=== PATIENT | female | born 1990 | race Caucasian/White ===

== ENCOUNTER 2018-10-21 21:29 | Emergency (ER) | payer MEDICAID ==
[~2018-10-21] VITALS: Ht 157.5 cm; Wt 63.5 kg
[~2018-10-21 21:29] MED LIST: ABAC300; ALBU90OI6 INH; BC PILLS; BUPR75 PO; Bactrim Ds Tab1 EACH PO; Cyclobenzaprine5 MG PO; Esgic Tablet1 EACH PO; Flonase 0.05% N16 GM; IBUP600 PO; IBUP800; Mobic15 MG PO; Naprosyn375 MG PO; Pepcid20 MG PO; Percocet 5-3251 EACH PO; Pseudoephedrine30 MG PO; SULTRIDS PO; Tylenol325 MG PO; Verotin-Gr Cap1 EACH PO; Vibramycin100 MG PO; Zofran Odt4 MG PO; Zofran Odt4 MG SL; Zofran8 MG PO
[2018-10-21] MEDS ORDERED: Sudogest60 MG PO (21:54)
[2018-10-21] MEDS ORDERED: Amoxicillin875 MG PO (21:54)
== END 2018-10-21 22:19 | disposition home or self-care (01) ==
LOC: ER 21:29
DX: H66.92 Otitis media, unspecified, left ear (principal); Z88.5 Allergy status to narcotic agent; F17.200 Nicotine dependence, unspecified, uncomplicated
CPT/HCPCS: 99282

== ENCOUNTER 2019-06-22 05:38 | Emergency (ER) | payer OTHER ==
[~2019-06-22] VITALS: Ht 157.5 cm; Wt 63.5 kg
[~2019-06-22 05:38] MED LIST changes: +ALBU90OI61 INH; +Amoxicillin875 MG PO; +BENZ100A PO; +Sudogest30 MG PO; +Sudogest60 MG PO
[2019-06-22 06:15] LABS: Source, Urine Clean Catch
[2019-06-22 06:18] LABS: Bilirubin, Urine Neg (Neg); Blood, Urine Neg (Neg); Glucose Qualitative, Urine Neg (Neg); Ketones, Urine Neg (Neg); Leukocyte Esterase, Urine 2+ (Neg); Nitrite, Urine Neg (Neg); Protein, Urine Neg (Neg); Urobilinogen, Urine NORM (Normal)
[2019-06-22 06:27] LABS: Appearance, Urine Clear (Clear); Color, Urine Pale Yellow (P-Yellow)
[2019-06-22 06:29] LABS: Bacteria Few /hpf; Red Blood Cells, Urine 0-2 /hpf (0-2); Squamous Epithelial Cells Mod /hpf (Few)
[2019-06-22 07:53] LABS: BASOPHILS ABSOLUTE AUTO 0.02 K/mm3 (0.00-0.23); BASOPHILS PERCENT AUTO 0 % (0-2); EOSINOPHILS PERCENT AUTO 2 % (0-6); Hematocrit 35.2 % (33.0-51.0); Hemoglobin 11.8 g/dL (11.5-16.0); IMMATURE GRAN ABSOLUTE AUTO 0.01 K/mm3 (0.00-0.10); IMMATURE GRAN PERCENT AUTO 0 % (0-1); LYMPHOCYTES PERCENT AUTO 34 % (21-46); MONOCYTES ABSOLUTE AUTO 0.49 K/mm3 (0.16-1.47); MONOCYTES PERCENT AUTO 9 % (4-13); Mean Corpuscular HGB 29.6 pg (26.0-34.0); Mean Corpuscular HGB Conc 33.5 g/dL (31.5-36.5); Mean Corpuscular Volume 88 fL (80-100); Mean Platelet Volume 9.9 fL (9.1-12.4); NEUTROPHILS ABSOLUTE AUTO 3.16 K/mm3 (1.96-9.15); NEUTROPHILS PERCENT AUTO 56 % (41-73); Platelet Count 202 K/mm3 (150-400); RDW Coefficient Variation 12.2 % (11.7-14.2); RDW Standard Deviation 39.6 fL (35.1-46.3); Red Blood Cell Count 3.99 M/mm3 (3.80-5.20); White Blood Cell Count 5.68 K/mm3 (4.00-11.30)
[2019-06-22 08:20] LABS: Alanine Aminotransfer (ALT/SGP 22 U/L (12-78); Albumin, Blood 3.7 g/dL (3.4-5.0); Albumin/Globulin Ratio 1.3 (0.8-1.8); Alk Phos 78 U/L (50-136); Anion Gap 6 mmol/L (6-16); Aspartate Aminotrans (AST/SGOT 14 U/L (12-37); Bilirubin, Total 0.4 mg/dL (0.1-1.0); Blood Urea Nitrogen 14 mg/dL (8-24); Bun/Creatinine Ratio 25.4 (12.0-20.0); CO2, Blood 26 mmol/L (21-32); Calcium, Blood 8.6 mg/dL (8.5-10.1); Chloride, Blood 111 mmol/L (98-108); Creatinine, Blood 0.55 mg/dL (0.40-1.00); Globulin, Blood 2.9 g/dL (2.2-4.0); Glomerular Filtration Rate >60 (60-); Glucose, Blood 93 mg/dL (70-99); Sodium, Blood 143 mmol/L (136-145); Total Protein, Blood 6.6 g/dL (6.4-8.2)
[2019-06-22] MEDS ORDERED: Zofran4 MG PO (09:04)
== END 2019-06-22 09:44 | disposition home or self-care (01) ==
LOC: ER 05:38
PROVIDERS: Emergency Medicine
DX: R11.2 Nausea with vomiting, unspecified (principal); R19.7 Diarrhea, unspecified; Z88.5 Allergy status to narcotic agent; J45.909 Unspecified asthma, uncomplicated
CPT/HCPCS: 36415; 80053; 81001; 81025; 83690; 85025; 87086; 96360; 99283-25; J2405; J7030

== ENCOUNTER 2019-08-20 07:37 | Emergency (ER) | payer OTHER ==
[~2019-08-20] VITALS: Ht 157.5 cm; Wt 65.8 kg
[~2019-08-20 07:37] MED LIST changes: +Zofran4 MG PO
[2019-08-20 08:54] LABS: Influenza A Negative (NEGATIVE); Influenza B Negative (NEGATIVE)
[2019-08-20] MEDS ORDERED: METPRE4DP PO (09:49)
[2019-08-20] MEDS ORDERED: Ventolin/Prove6.7 GM INH (09:49)
== END 2019-08-20 09:57 | disposition home or self-care (01) ==
LOC: ER 07:37
PROVIDERS: Emergency Medicine
DX: J98.01 Acute bronchospasm (principal); J06.9 Acute upper respiratory infection, unspecified; Z88.5 Allergy status to narcotic agent; Z79.899 Other long term (current) drug therapy
CPT/HCPCS: 71046; 81025; 87804; 94640; 99283-25

== ENCOUNTER → 2020-07-12 | Outpatient (CLI) | payer OTHER ==
[~2020-07-12] MED LIST changes: +METPRE4DP PO; +Ventolin/Prove6.7 GM INH
[2020-07-13 11:28] LABS: Candida species (DNA Probe) Negative (NEGATIVE); G. vaginalis (DNA Probe) Negative (NEGATIVE); T. vaginalis (DNA Probe) Negative (NEGATIVE)
[2020-07-13 15:11] LABS: HPV 16 Negative (Negative); HPV 18 Negative (Negative); HPV OTHER HR TYPES Negative (Negative)
== END | disposition home or self-care (01) ==
LOC: LAB SHORT 17:58 → LAB 17:58
PROVIDERS: Nurse Practitioner Family
DX: N76.0 Acute vaginitis (principal)
CPT/HCPCS: 87070; 87205; 87480; 87510; 87624; 87660; G0123

== ENCOUNTER 2021-01-12 07:05 | Emergency (ER) | payer OTHER ==
[~2021-01-12] VITALS: Ht 157.5 cm; Wt 68.0 kg
[2021-01-12] MEDS ORDERED: SUMA25 PO (07:18)
[2021-01-12] MEDS ORDERED: ZEBUTAL 50-3251 EAC2 PO (09:38)
== END 2021-01-12 09:51 | disposition home or self-care (01) ==
LOC: ER 07:05
DX: R51.9 Headache, unspecified (principal); F41.9 Anxiety disorder, unspecified; J45.909 Unspecified asthma, uncomplicated; Z88.6 Allergy status to analgesic agent; Z88.5 Allergy status to narcotic agent; Z79.899 Other long term (current) drug therapy
CPT/HCPCS: 36415; 70450; 96374; 96375; 99284-25; J1100; J1200; J1885; J2060; J2765; J7030

== ENCOUNTER 2021-06-09 23:54 | Emergency (ER) | payer OTHER ==
[~2021-06-09] VITALS: Ht 157.5 cm; Wt 70.8 kg
[~2021-06-09 23:54] MED LIST changes: +SUMA25 PO; +ZEBUTAL 50-3251 EAC2 PO
[2021-06-10] MEDS ORDERED: Amoxicillin875 MG PO (00:35)
== END 2021-06-10 00:32 | disposition home or self-care (01) ==
LOC: ER 23:54
DX: H66.92 Otitis media, unspecified, left ear (principal); J30.9 Allergic rhinitis, unspecified; G43.909 Migraine, unspecified, not intractable, without status migrainosus; J45.909 Unspecified asthma, uncomplicated; Z88.5 Allergy status to narcotic agent
CPT/HCPCS: 99282

== ENCOUNTER → 2022-04-04 | Outpatient (CLI) | payer OTHER ==
[2022-04-05 10:27] LABS: Candida species (DNA Probe) Negative (NEGATIVE); G. vaginalis (DNA Probe) Positive (NEGATIVE); T. vaginalis (DNA Probe) Negative (NEGATIVE)
== END | disposition home or self-care (01) ==
LOC: LAB 13:03 → LAB SHORT 13:03
PROVIDERS: Family Medicine
DX: R30.9 Painful micturition, unspecified (principal)
CPT/HCPCS: 87086; 87480; 87510; 87660

== ENCOUNTER 2022-11-22 07:29 | Day surgery (SDC) | payer OTHER ==
[~2022-11-22] VITALS: Ht 157.5 cm; Wt 66.2 kg
[2022-11-22] MEDS ORDERED: AMITRIPTYLINE H25 MG PO (08:05)
[2022-11-22] MEDS ORDERED: LAMO25 PO (08:06)
[2022-11-22] MEDS ORDERED: LATUDA20 M1 PO (08:09)
--- NOTE | 2022-11-22 09:41 | NUR ---
11/22/22 0941 Courtney Khoury ORSC.LETITIA UPPER PREP ORSC.KNM LOWER PREP
--- NOTE | 2022-11-22 11:07 | NUR ---
11/22/22 1107 Radha Neves PATIENT UP IN RECLINER DRINKING PEPSI AND EATING CRACKERS. NO NAUSEA. FENTANYL 25MCG IV ADMINISTERED FOR 6/10 ABD PAIN PER MD ORDERS.
== END 2022-11-22 11:30 | disposition home or self-care (01) ==
LOC: ORSCSDS 07:29
PROVIDERS: Obstetrics & Gynecology
PROC: 0U5B8ZZ Destruction of Endometrium, Via Natural or Artificial Opening Endoscopic (ICD-10-PCS; principal; 2022-11-22 08:45)
PROC: 0UT74ZZ Resection of Bilateral Fallopian Tubes, Percutaneous Endoscopic Approach (ICD-10-PCS; principal; 2022-11-22 08:45)
DX: Z30.2 Encounter for sterilization (principal); N92.1 Excessive and frequent menstruation with irregular cycle; N94.6 Dysmenorrhea, unspecified; N83.8 Other noninflammatory disorders of ovary, fallopian tube and broad ligament; J45.909 Unspecified asthma, uncomplicated; F32.A Depression, unspecified; Z79.899 Other long term (current) drug therapy
CPT/HCPCS: 88302; 88305; A9270; J0171; J0690; J1100; J2250; J2405; J2704; J2795; J3010; J7120

== ENCOUNTER 2025-04-04 18:33 | Observation (INO) | payer OTHER ==
[~2025-04-04] VITALS: Ht 157.5 cm; Wt 63.5 kg
[~2025-04-04 18:33] MED LIST changes: +AMITRIPTYLINE H25 MG PO; +LAMO25 PO; +LATUDA20 M1 PO
[2025-04-04 19:47] LABS: Source, Urine Clean Catch
[2025-04-04 19:53] LABS: BASOPHILS ABSOLUTE AUTO 0.06 K/mm3 (0.00-0.23); BASOPHILS PERCENT AUTO 1 % (0-2); EOSINOPHILS ABSOLUTE AUTO 0.07 K/mm3 (0.00-0.68); EOSINOPHILS PERCENT AUTO 1 % (0-6); Hematocrit 35.4 % (33.0-51.0); Hemoglobin 12.4 g/dL (11.5-16.0); IMMATURE GRAN ABSOLUTE AUTO 0.06 K/mm3 (0.00-0.10); IMMATURE GRAN PERCENT AUTO 1 % (0-1); LYMPHOCYTES ABSOLUTE AUTO 1.69 K/mm3 (0.84-5.20); LYMPHOCYTES PERCENT AUTO 13 % (21-46); MONOCYTES ABSOLUTE AUTO 1.35 K/mm3 (0.16-1.47); MONOCYTES PERCENT AUTO 10 % (4-13); Mean Corpuscular HGB 30.3 pg (26.0-34.0); Mean Corpuscular Volume 87 fL (80-100); Mean Platelet Volume 9.4 fL (9.1-12.4); NEUTROPHILS ABSOLUTE AUTO 9.89 K/mm3 (1.96-9.15); NEUTROPHILS PERCENT AUTO 75 % (41-73); Platelet Count 347 K/mm3 (150-400); RDW Coefficient Variation 12.9 % (11.7-14.2); RDW Standard Deviation 40.2 fL (35.1-46.3); Red Blood Cell Count 4.09 M/mm3 (3.80-5.20); White Blood Cell Count 13.12 K/mm3 (4.00-11.30)
[2025-04-04 19:53] LABS: Appearance, Urine Cloudy (Clear); Blood, Urine 1+ (Neg); Color, Urine Yellow (P-Yellow); Glucose Qualitative, Urine Neg (Neg); Ketones, Urine 1+ (Neg); Leukocyte Esterase, Urine 3+ (Neg); Nitrite, Urine Neg (Neg); Protein, Urine 3+ (Neg); Urobilinogen, Urine 3+ (Normal)
[2025-04-04 20:00] LABS: Bilirubin, Urine 2+ (Neg)
[2025-04-04 20:01] LABS: Bacteria Few /hpf
[2025-04-04 20:02] LABS: Amorphous Light (0-Heavy); Calcium Oxalate Crystals Few /hpf; Mucus Light (0-Heavy); Squamous Epithelial Cells Many /hpf (Few)
[2025-04-04 20:13] LABS: Albumin, Blood 4.7 g/dL (3.4-5.0); Albumin/Globulin Ratio 1.4 (0.8-1.8); Bilirubin, Total 0.4 mg/dL (0.1-1.0); Bun/Creatinine Ratio 18.7 (12.0-20.0); Calcium, Blood 9.6 mg/dL (8.5-10.1); Creatinine, Blood 1.23 mg/dL (0.40-1.00); Globulin, Blood 3.4 g/dL (2.2-4.0); Potassium, Blood 3.2 mmol/L (3.5-5.5); Total Protein, Blood 8.1 g/dL (6.4-8.2)
[2025-04-04 20:19] LABS: U Amphetamine Screen Not Detected; U Barbituate Screen Not Detected; U Benzodiazapine Screen Not Detected; U Buprenorphine Screen Not Detected; U Cannabinoids Screen DETECTED; U Cocaine Screen DETECTED; U Methadone Screen Not Detected; U Methamphetamine Screen Not Detected; U Opiates Screen Not Detected; U Oxycodone Screen Not Detected; U Phencyclidine Screen Not Detected
[2025-04-04 20:51] VITALS: BP 121/88
[2025-04-04] MEDS ORDERED: LORazepam 1 MG Tab PO ONE ×2 (21:50→22:20)
[2025-04-04] MEDS ORDERED: LORazepam 2 MG/ML 1ML Injection IV ONE (22:05)
== END 2025-04-05 14:19 | disposition home or self-care (01) ==
LOC: ER 18:33 → EOR 18:34
PROVIDERS: Student in an Organized Health Care Education/Training Program; ADMIT Student in an Organized Health Care Education/Training Program
DX: F31.60 Bipolar disorder, current episode mixed, unspecified (principal); F14.90 Cocaine use, unspecified, uncomplicated; J45.909 Unspecified asthma, uncomplicated; F17.290 Nicotine dependence, other tobacco product, uncomplicated; Z88.5 Allergy status to narcotic agent
CPT/HCPCS: 80053; 81001; 83690; 84703; 85025; 87086; 93005; 93010; 99285-25; A9270; G0378; J2060

== ENCOUNTER 2025-04-05 10:52 | Inpatient (IN) | payer OTHER ==
[~2025-04-05] VITALS: Ht 157.5 cm; Wt 61.4 kg
[2025-04-05] MEDS ORDERED: Acetaminophen 325 MG TABLET PO PRN (13:10)
[2025-04-05] MEDS ORDERED: TraZODone HCl 50 MG Tab PO PRN (13:15)
[2025-04-05] MEDS ORDERED: Polyethylene Glycol 3350 17 gm PO PRN (13:15)
[2025-04-05] MEDS ORDERED: DiphenhydrAMINE HCl 50 MG Cap PO PRN (13:15)
[2025-04-05] MEDS ORDERED: Calcium Carbonate 500 MG Tab Chew PO PRN (13:15)
[2025-04-05] MEDS ORDERED: DiphenhydrAMINE HCl 50 MG/ML 1ML Vial IM PRN (13:15)
[2025-04-05] MEDS ORDERED: Melatonin 3 MG Tab PO PRN (13:15)
[2025-04-05] MEDS ORDERED: Ondansetron 4 MG SoluTab MM PRN (13:15)
[2025-04-05] MEDS ORDERED: LORazepam 2 MG/ML 1ML Injection IM PRN (13:20)
[2025-04-05] MEDS ORDERED: OLANZapine ODT 10 MG Tab MM PRN (13:20)
[2025-04-05] MEDS ORDERED: Haloperidol Lactate Inj. 5 MG/ML Injection IM PRN (13:20)
[2025-04-05] MEDS ORDERED: Ibuprofen 600 MG Tab PO PRN (13:20)
[2025-04-05] MEDS ORDERED: LORazepam 2 MG Tab PO PRN (13:20)
[2025-04-05] MEDS ORDERED: Haloperidol 5 MG Tab PO PRN (13:20)
[2025-04-05] MEDS ORDERED: Aluminum Hydroxide 320MG/5ML 473 ML PO PRN (13:20)
[2025-04-05] MEDS ORDERED: HydrOXYzine Pamoate 50 MG Cap PO PRN (13:25)
[2025-04-05 14:25] VITALS: BP 117/80
[2025-04-05 15:15] VITALS: BP 117/80
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
[2025-04-05 20:10] VITALS: BP 125/90
[2025-04-05] MEDS ORDERED: LamoTRIgine 25 MG Tab PO SCH (21:00)
--- NOTE | 2025-04-06 05:51 | NUR ---
SHIFT SUMMARY Pt is A&O, calm, cooperative, eye contact is appropriate. Pt said her mood is sad, affect is congruent to stated mood. Pt denies SI, HI, and current hallucinations. Pt was very weepy during assessment, stating that she wanted to see her son, who is with his father. Pt asked for shower item and came to the nurse station after her shower feeling much better. Pt has a cold sore on her upper lip. She stated that the normal cold sore medications do not work well and requested to rub a prep pad on the sore, which she said she does at home once or twice per day. Pt retired to her room after snacktime. At about 0510 pt presented to the nurse station very upset and anxious, stating that she needed to take care of her car and that she wanted to go home. Pt took PRN olanzapine at 0522, after which she continued to verbalize why she needed to discharge. Olive Knocker used therapeutic communication to try to calm the patient finally suggesting that patient lie down on the beanbag chair in the sensory room. At about 0540 pt came out of the sensory room and returnED to her room. Pt is on q15m safety checks per unit protocol.
[2025-04-06 07:34] LABS: CHOL/HDL RATIO 5.4; Cholesterol 189 mg/dL (50-200); HDL Cholesterol 35 mg/dL (>39); LDL/HDL RATIO 3.7; Low Density Lipoprotein Chol 130 mg/dL (0-110); Triglycerides 119 mg/dL (30-140); Very Low Density Lipoprot Chol 23 mg/dL (6-28)
[2025-04-06] MEDS ORDERED: Multivitamins 1 Tab PO SCH (09:00)
[2025-04-06 09:05] VITALS: BP 132/97
--- NOTE | 2025-04-06 18:15 | NUR ---
SHIFT SUMMARY PT A/O X4; DENIES SI, HI, OR HALLUCINATIONS. PT REPORTS THAT SHE IS ANXIOUS BECAUSE SHE NEEDS TO GET HER CAR AND PAY HER RENT AND CANNOT DO THOSE THINGS WHILE HERE. OFFERED FOR PT TO USE THE PHONE TO CALL SOMEONE TO GET HER CALL. PT SAYS THAT SHE DOES NOT HAVE THE PHONE NUMBERS OF THOSE SHE NEEDS TO CALL. PT REPORTED THAT SHE NEEDED TO SLEEP AND IS FEELING SOMEWHAT BETTER. HOWEVER, SHE DID BECOME AGITATED THIS MORNING AND WAS TREATED PER EMR FOR ANXIETY. PT MET WITH PSYCHIATRIST AND IS WILLING TO STAY IN ORDER TO TRY ZYPREXA TONIGHT.
[2025-04-06 19:21] VITALS: BP 126/81
[2025-04-06] MEDS ORDERED: OLANZapine 5 MG Tab PO SCH (21:00)
--- NOTE | 2025-04-07 04:31 | NUR ---
SHIFT SUMMARY: PATIENT WAS LYING IN HER BED AT THE BEGINNING OF THE SHIFT, RESTING QUIETLY. SHE RESPONDED TO QUESTIONS APPROPRIATELY, IF INDIFFERENTLY. SHE DID GET UP FOR SNACK AT 2030. SHE WAS COMPLIANT WITH MEDICATIONS, AND HAD NO QUESTIONS OR CONCERNS. SHE STATED THAT SHE WAS NOT HAVING SUICIDAL IDEATION OR THOUGHTS OF SELF HARMING. SHE DENIED A/V HALLUCINATIONS. SHE WENT BACK TO BED AFTER SNACK TIME AND WAS NOTED TO BE RESTING QUIETLY WITH EYES CLOSED AND RESPIRATIONS CONFIRMED. CONTINUING TO MONITOR FOR SAFETY WITH Q15 MINUTE CHECKS.
--- NOTE | 2025-04-07 10:32 | NUR ---
IMPORTANT DISCHARGE INFORMATION PATIENT TO BE DISCHARGED TODAY. HER FRIEND WILL BE PICKING HER UP VIA HER REQUEST. FOLLOW UP APPOINTMENT WITH PCP ON 04/09/25 AT 2:50PM WITH SOULEYMANE TAVERA AT [facility]. PHARMACY: [address] [facility] [place]. [facility] FOR FOLLOW UP OR CRISIS RESOURCES GIVEN: [facility] AND [facility]OP[facility].
[2025-04-07] MEDS ORDERED: LAMO25 PO (10:43)
[2025-04-07] MEDS ORDERED: OLAN5 PO (10:43)
--- NOTE | 2025-04-07 11:15 | NUR ---
DISCHARGE PT A/O; DENIES SI, HI, AND HALLUCINATIONS. DISCHARGE PAPER WORK GONE OVER WITH PATIENT AND SHE VERBALIZED UNDERSTANDING. PT'S FOLLOW UP APPOINTMENT SCHEDULED WITH PCP AND SHE IS FOLLOWED BY ADRIAN[facility] BR[facility] AT [facility]. TOLD PATIENT SHE CAN ALSO UTILIZE [facility] IF NEEDED. HER BELONGINGS WERE RETURNED AND SHE WAS PICKED UP BY HER S/O. PT LEFT UNIT AT 1100.
== END 2025-04-07 11:00 | disposition home or self-care (01) | DRG 885 ==
LOC: BHU 10:52
PROVIDERS: ADMIT Psychiatry & Neurology Psychiatry
DX: F31.60 Bipolar disorder, current episode mixed, unspecified (principal); G43.909 Migraine, unspecified, not intractable, without status migrainosus; J45.909 Unspecified asthma, uncomplicated; F17.290 Nicotine dependence, other tobacco product, uncomplicated; F12.10 Cannabis abuse, uncomplicated; F14.10 Cocaine abuse, uncomplicated; Z88.5 Allergy status to narcotic agent; Z88.8 Allergy status to other drugs, medicaments and biological substances
CPT/HCPCS: 36415; 80061; 83036; A9270